=== PATIENT | female | born 1970 | race African-American/Black ===

== ENCOUNTER 2017-09-29 02:38 | Emergency (ER) | payer OTHER, SELFPAY ==
[2017-09-29 02:38] VITALS: BP 154/89; PULSE 100; RESP 16; TEMP 37; O2SAT 98; BMI 26.5
--- NOTE | 2017-09-29 02:47 | ED.VISSUMM ---
- ER Visit Summary Date of Service: 09/29/17 Chief Complaint: Skin rash and itching History of Present Illness: The patient is a 47 F history of psoriasis and eczema. Patient states she had a flare approximately a month ago. Saw her airplane tester Dr. Franki Flood who placed her on prednisone and it cleared it up. She states she has been doing well but in the last several days had another flare with increasing itching. She denies any fever or other illness. No prior allergic reactions. Physical Examination: Well-appearing middle-age female. Vital signs are stable afebrile. She does not look septic or toxic. She is no acute distress. HEENT exam unremarkable. Neck nontender no lymphadenopathy. Lungs clear to auscultation bilaterally. Heart regular rate and rhythm no murmur. Abdomen soft nontender. Moving all 4 extremities. Neurovascular intact. Skin she has a raised rash on both upper extremities. Consistent with eczema. There are no petechiae or purpura. No sloughing of skin. No vesicles. No cellulitis. Test Results: None Emergency Department Course and Treatment: Patient be given a dose of prednisone here and placed on prednisone for the next 9 days. Follow-up with her airplane tester as needed. Treatment Plan: [] Disposition: Discharge Impression: Acute rash with itching secondary to eczema This note was generated with [employer] dictation software. It may contain incorrect words, spelling, and punctuation that were not noted in review of the chart prior to signing ED Disposition - Plan for ED Patient: Chief Complaint: Itching Referrals: Trevor Middleton DO [Primary Care Provider] -
--- NOTE | 2017-09-29 02:50 | ED.DCSUM_ITS ---
- ER Visit Summary Date of Service: 09/29/17 Chief Complaint: Skin rash and itching History of Present Illness: The patient is a 47 F history of psoriasis and eczema. Patient states she had a flare approximately a month ago. Saw her sheriffs officer Dr. Franki Flood who placed her on prednisone and it cleared it up. She states she has been doing well but in the last several days had another flare with increasing itching. She denies any fever or other illness. No prior allergic reactions. Physical Examination: Well-appearing middle-age female. Vital signs are stable afebrile. She does not look septic or toxic. She is no acute distress. HEENT exam unremarkable. Neck nontender no lymphadenopathy. Lungs clear to auscultation bilaterally. Heart regular rate and rhythm no murmur. Abdomen soft nontender. Moving all 4 extremities. Neurovascular intact. Skin she has a raised rash on both upper extremities. Consistent with eczema. There are no petechiae or purpura. No sloughing of skin. No vesicles. No cellulitis. Test Results: None Emergency Department Course and Treatment: Patient be given a dose of prednisone here and placed on prednisone for the next 9 days. Follow-up with her sheriffs officer as needed. Treatment Plan: [] Disposition: Discharge Impression: Acute rash with itching secondary to eczema This note was generated with [employer] dictation software. It may contain incorrect words, spelling, and punctuation that were not noted in review of the chart prior to signing ED Disposition - Plan for ED Patient: Chief Complaint: Itching Referrals: Trevor Middleton DO [Primary Care Provider] -
--- NOTE | 2017-09-29 02:52 | DCINST.ED_ITS ---
ED Disposition - Plan for ED Patient: Disposition: Home or Assisted Living Chief Complaint: Itching Instructions: ED Dermatitis Atopic Eczema, ED Psoriasis Prescriptions: Prednisone [Deltasone] 40 mg PO DAILY 9 Days tab Referrals: Trevor Middleton DO [Primary Care Provider] - Additional Instructions: Prednisone once daily for the next 9 days. Follow-up with her obstetrics teacher as needed.
[2017-09-29 02:59] VITALS: RESP 16
== END 2017-09-29 03:02 | disposition home or self-care (01) ==
LOC: ED 02:57
PROVIDERS: Emergency Provider Emergency Medicine; Family Provider Student in an Organized Health Care Education/Training Program; PCP Student in an Organized Health Care Education/Training Program
DX: L30.9 Dermatitis, unspecified (principal); L40.8 Other psoriasis
CPT/HCPCS: 99283